=== PATIENT | female | born 1960 | race Caucasian/White ===

== ENCOUNTER → 2018-02-04 | Outpatient (REF) | payer BC ==
[2018-02-04 15:44] LABS: ALBUMIN 3.7 GM/DL (3.2-5.2); ALBUMIN/GLOBULIN RATIO 1.19 (1.00-1.93); ALKALINE PHOSPHATASE 82 U/L (45-117); ALT/SGPT 18 U/L (12-78); ANION GAP 7 MEQ/L (8-16); AST/SGOT 21 U/L (7-37); BILIRUBIN,TOTAL 0.5 MG/DL (0.2-1.0); BLOOD UREA NITROGEN 32 MG/DL (7-18); CALCIUM LEVEL 8.4 MG/DL (8.5-10.1); CARBON DIOXIDE LEVEL 25 MEQ/L (21-32); CHLORIDE LEVEL 108 MEQ/L (98-107); CHOLESTEROL LEVEL 242 MG/DL (<200); CHOLESTEROL RISK RATIO 2.813 (<5); GLOMERULAR FILTRATION RATE 30.7 (>51); GLUCOSE, FASTING 92 MG/DL (70-100); HDL CHOLESTEROL 86 MG/DL (>40); LDL CHOLESTEROL 137.6 MG/DL (<100); NON-HDL-C 156 MG/DL; POTASSIUM SERUM 4.6 MEQ/L (3.5-5.1); SODIUM LEVEL 140 MEQ/L (136-145); TOTAL PROTEIN 6.8 GM/DL (6.4-8.2); TRIGLYCERIDES LEVEL 92 MG/DL (<150)
[2018-02-04 16:17] LABS: CREATININE, URINE 62.9 MG/DL
== END ==
LOC: M SFHCLACO 09:18
DX: I10 Essential (primary) hypertension (principal); E78.2 Mixed hyperlipidemia; N28.9 Disorder of kidney and ureter, unspecified; E03.9 Hypothyroidism, unspecified
CPT/HCPCS: 84443

== ENCOUNTER → 2018-05-30 | Outpatient (CLI) | payer BC ==
[2018-05-30 08:21] LABS: BASO % 0.4 % (0.0-1.0); EOS # 0.1 10^3/uL (0.0-0.50); EOS % 2.7 % (0.0-3.0); HEMATOCRIT 30.9 % (36.0-47.0); HEMOGLOBIN 10.2 g/dl (12.0-15.5); IMMATURE GRANULOCYTE % 0.4 % (0-3.0); LYMPH # 1.3 10^3/uL (1.5-4.5); MEAN CORPUSCULAR HEMOGLOBIN 30.3 pg (27.0-33.0); MEAN CORPUSCULAR VOLUME 91.7 fl (80.0-96.0); MONO # 0.6 10^3/uL (0.0-0.8); MONO % 12.3 % (0.0-5.0); NEUTROPHILS # 2.5 10^3/uL (1.8-7.7); NEUTROPHILS % 56.2 % (36.0-66.0); PLATELET COUNT, AUTOMATED 104 10^3/uL (150-450); RED BLOOD COUNT 3.37 10^6/uL (4.00-5.40); RED CELL DISTRIBUTION WIDTH 12.8 % (11.5-14.5); RETIC HEMOGLOBIN EQUIVALENT 36.2 pg (24-36); RETICULOCYTE % 1.8 % (0.5-1.5); WHITE BLOOD COUNT 4.5 10^3/uL (4.0-10.0)
[2018-05-30 08:29] LABS: INR 1.78
[2018-05-30 08:31] LABS: PARTIAL THROMBOPLASTIN TIME 89.9 SECONDS (25.4-37.6)
== END ==
LOC: M LAB 07:22
DX: R76.0 Raised antibody titer (principal)

== ENCOUNTER → 2018-06-02 | Outpatient (REF) | payer BC ==
[2018-06-02 19:49] LABS: INR 2.71; PROTHROMBIN TIME 29.3 SECONDS (12.1-14.4)
[2018-06-02 19:51] LABS: PARTIAL THROMBOPLASTIN TIME 97.4 SECONDS (25.4-37.6)
[2018-06-05 00:11] LABS: ANA (HEP2) Positive (.)
== END ==
LOC: M SFHCPLAZ 19:05
DX: R76.0 Raised antibody titer (principal)
CPT/HCPCS: 85610

== ENCOUNTER → 2018-06-10 | Outpatient (REF) | payer BC ==
[2018-06-10 20:14] LABS: INR 4.25; PROTHROMBIN TIME 41.9 SECONDS (12.1-14.4)
== END ==
LOC: M LABDRWAD 19:16
DX: R76.0 Raised antibody titer (principal)

== ENCOUNTER → 2022-01-01 | Outpatient (CLI) | payer BC ==
[~2022-01-01] MED LIST: ASPI81TA27 PO; ASPI81TA86 PO; ELIQ5TAB PO; FISH7.5C PO; IRON27TA2 PO; KEPP1TAB PO; LISI20TA33 PO; MULTCAP PO; SYNT88TA2 PO; THERTAB52 PO; WARF-23 PO; ZOCO40TA PO
== END ==
LOC: M LABSMTC 11:09
PROVIDERS: ATTEND Anesthesiology
DX: Z01.818 Encounter for other preprocedural examination (principal); Z11.52 Encounter for screening for COVID-19

== ENCOUNTER 2022-01-05 07:49 | Day surgery (SDC) | payer BC ==
[~2022-01-05] VITALS: Ht 157.5 cm; Wt 67.6 kg
[~2022-01-05 07:49] MED LIST changes: +LIDOCAINE 2% 100MG/5ML SDV (FOR ANES.) As Ordered ONE; +NS 1,000 ML IV ONE; +propofoL 200 MG/20 ML VIAL As Ordered ONE
[2022-01-05 10:27] VITALS: BP 130/60
== END 2022-01-05 10:30 | disposition home or self-care (01) ==
LOC: M OPP 07:49
PROVIDERS: ATTEND Internal Medicine Gastroenterology
DX: Z12.11 Encounter for screening for malignant neoplasm of colon (principal); Z80.0 Family history of malignant neoplasm of digestive organs; K64.8 Other hemorrhoids; D68.61 Antiphospholipid syndrome; I08.0 Rheumatic disorders of both mitral and aortic valves; Z79.02 Long term (current) use of antithrombotics/antiplatelets; Z79.82 Long term (current) use of aspirin; Z79.899 Other long term (current) drug therapy; Z88.0 Allergy status to penicillin; Z80.42 Family history of malignant neoplasm of prostate; Z80.52 Family history of malignant neoplasm of bladder; Z87.891 Personal history of nicotine dependence

== ENCOUNTER → 2022-11-26 | Outpatient (CLI) | payer BC ==
[~2022-11-26] MED LIST changes: +FISH10005 PO; -FISH7.5C PO; -LIDOCAINE 2% 100MG/5ML SDV (FOR ANES.) As Ordered ONE; -NS 1,000 ML IV ONE; +SIMV-254 PO; -ZOCO40TA PO; -propofoL 200 MG/20 ML VIAL As Ordered ONE
== END ==
LOC: M WHC 08:56
PROVIDERS: ATTEND Specialist
DX: Z12.31 Encounter for screening mammogram for malignant neoplasm of breast (principal); Z13.820 Encounter for screening for osteoporosis; M85.89 Other specified disorders of bone density and structure, multiple sites

== ENCOUNTER → 2022-11-26 | Outpatient (REF) | payer BC | LOC: M SFHCWAGY 18:22 | PROVIDERS: ATTEND Nurse Practitioner Family | DX: Z12.4 Encounter for screening for malignant neoplasm of cervix (principal); N95.2 Postmenopausal atrophic vaginitis ==

== ENCOUNTER → 2024-02-18 | Outpatient (CLI) | payer BC, MEDICARE | LOC: M WHC 11:33 | PROVIDERS: ATTEND Family Medicine | DX: Z12.31 Encounter for screening mammogram for malignant neoplasm of breast (principal) ==

== ENCOUNTER → 2025-06-15 | Outpatient (REF) | payer MEDICARE ==
[2025-06-15 13:08] LABS: INR 1.42
== END ==
LOC: M SFHCADAM 12:45
PROVIDERS: ATTEND Family Medicine
DX: Z79.01 Long term (current) use of anticoagulants (principal)

== ENCOUNTER → 2025-06-22 | Outpatient (REF) | payer MEDICARE ==
[2025-06-22 13:04] LABS: INR 2.16
== END ==
LOC: M SFHCADAM 10:10
PROVIDERS: ATTEND Family Medicine
DX: D68.61 Antiphospholipid syndrome (principal); Z79.01 Long term (current) use of anticoagulants

== ENCOUNTER → 2025-07-06 | Outpatient (REF) | payer MEDICARE ==
[2025-07-06 13:34] LABS: INR 3.47
== END ==
LOC: M SFHCADAM 10:17
PROVIDERS: ATTEND Family Medicine
DX: Z79.01 Long term (current) use of anticoagulants (principal)

== ENCOUNTER → 2025-07-13 | Outpatient (REF) | payer MEDICARE ==
[2025-07-13 13:30] LABS: INR 3.0
== END ==
LOC: M SFHCADAM 09:55
PROVIDERS: ATTEND Family Medicine
DX: D68.61 Antiphospholipid syndrome (principal); Z79.01 Long term (current) use of anticoagulants

== ENCOUNTER → 2025-07-26 | Outpatient (CLI) | payer MEDICARE ==
[2025-07-26 13:10] LABS: INR 1.82
== END ==
LOC: M PLALAB 10:08
PROVIDERS: ATTEND Family Medicine
DX: Z79.01 Long term (current) use of anticoagulants (principal)

== ENCOUNTER → 2025-07-26 | Outpatient (CLI) | payer MEDICARE ==
[2025-07-26 13:24] LABS: PLATELET COUNT, AUTOMATED 81 10^3/uL (150-450)
== END ==
LOC: M PLALAB 10:06
PROVIDERS: ATTEND Nurse Practitioner Family
DX: D68.61 Antiphospholipid syndrome (principal); Z79.01 Long term (current) use of anticoagulants

== ENCOUNTER → 2025-08-02 | Outpatient (REF) | payer MEDICARE ==
[~2025-08-02] MED LIST changes: -FISH10005 PO; +FISH1CAP38 PO
[2025-08-02 13:38] LABS: INR 2.86
== END ==
LOC: M SFHCADAM 10:56
PROVIDERS: ATTEND Family Medicine
DX: Z79.01 Long term (current) use of anticoagulants (principal)

== ENCOUNTER → 2025-08-19 | Outpatient (CLI) | payer MEDICARE | LOC: M IRPRO 14:37 | PROVIDERS: ATTEND Radiology Diagnostic Radiology | DX: I72.1 Aneurysm of artery of upper extremity (principal); R22.32 Localized swelling, mass and lump, left upper limb; I97.638 Postprocedural hematoma of a circulatory system organ or structure following other circulatory system procedure ==

== ENCOUNTER → 2025-08-19 | Outpatient (CLI) | payer MEDICARE | LOC: M RAD 13:21 | PROVIDERS: ATTEND Family Medicine | DX: I72.1 Aneurysm of artery of upper extremity (principal); I97.638 Postprocedural hematoma of a circulatory system organ or structure following other circulatory system procedure ==

== ENCOUNTER → 2025-08-22 | Outpatient (CLI) | payer MEDICARE ==
[2025-08-22 10:44] LABS: INR 1.13
== END ==
LOC: M LAB 09:26
PROVIDERS: ATTEND Family Medicine
DX: Z79.01 Long term (current) use of anticoagulants (principal)

== ENCOUNTER → 2025-08-24 | Outpatient (CLI) | payer MEDICARE ==
[2025-08-24 09:47] LABS: INR 1.18
== END ==
LOC: M LAB 08:42
PROVIDERS: ATTEND Family Medicine
DX: Z79.01 Long term (current) use of anticoagulants (principal)

== ENCOUNTER → 2025-08-24 | Outpatient (CLI) | payer MEDICARE | LOC: M RAD 08:38 | PROVIDERS: ATTEND Radiology Diagnostic Radiology | DX: I72.1 Aneurysm of artery of upper extremity (principal); Z79.01 Long term (current) use of anticoagulants ==